=== PATIENT | female | born 1945 | race Caucasian/White ===

== ENCOUNTER → 2017-01-20 | Outpatient (CLI) | payer MEDICARE ==
--- NOTE | 2017-01-22 17:20 | RADIOLOGY REPORT PS360 ---
DIG MAMM-SCREEN YESSI W/CAD CAD Screening ORDERING PHYSICIAN : ZULEIMA BERG PATIENT AGE: 71 years GENDER: Female COMPARISON: Previous mammograms: July 20142014, 2012June 2012, INDICATION: Routine screening no hormones no new complaints noncontributory family history TECHNIQUE: Standard CC and MLO images were obtained. R2 CAD reviewed. FINDINGS: Moderate density breast no areas of significant concern. No significant change.. No new areas concern. Bilateral follow-up in one year the adequate. Areas highlighted on CPAP have been seen previously and appear stable IMPRESSION: ............ Stable bilateral mammogram no new areas concern BI-RADS CATEGORY: 1_Negative RECOMMENDED FOLLOWUP: 12M 12 MONTH FOLLOW-UP (A letter has been sent to the patient regarding results of the study.)
== END ==
LOC: RAD 09:15
DX: Z12.31 Encounter for screening mammogram for malignant neoplasm of breast (principal)
CPT/HCPCS: G0202